=== PATIENT | male | born 1950 | race Caucasian/White ===

== ENCOUNTER 2019-11-22 21:46 | Emergency (ER) | payer BC ==
[~2019-11-22] VITALS: Ht 165.1 cm; Wt 86.2 kg
[2019-11-22 21:50] VITALS: BP_SYST 153
--- NOTE | 2019-11-22 21:50 | NUR ---
Patient triaged and placed in waiting room. VSS and patient appears in no acute distress at this time. Accompanied by FRIEND, awaiting available bed, and MD notified of need for MSE.
--- NOTE | 2019-11-22 22:37 | NUR ---
Patient to ER bed 3 to gown for evaluation. Side rails up. Report given to CLIFTON STANLEY.
--- NOTE | 2019-11-22 22:38 | NUR ---
Pt complains of rash that he noticed 3 weeks ago and has progessively got worse. Pt denies any N/V, short of breath, fever. No other injuries/complaints per patient or noted.
--- NOTE | 2019-11-22 22:50 | NUR ---
ER Dr. Rader at bedside examining patient.
--- NOTE | 2019-11-22 23:05 | NUR ---
Patient given written and verbal discharge instructions and verbalizes understanding. ER MD discussed with patient the results and treatment provided. Patient in stable condition. ID arm band removed. No Rx given. Patient educated on pain management and to follow up with PMD. Pain Scale 0/10 Opportunity for questions provided and answered. Medication side effect fact sheet provided.
[2019-11-22 23:17] VITALS: BP_SYST 153
== END 2019-11-22 23:17 | disposition home or self-care (01) ==
LOC: SED 21:46
DX: I12.9 Hypertensive chronic kidney disease with stage 1 through stage 4 chronic kidney disease, or unspecified chronic kidney disease (principal); E11.22 Type 2 diabetes mellitus with diabetic chronic kidney disease; N18.9 Chronic kidney disease, unspecified; R21 Rash and other nonspecific skin eruption
CPT/HCPCS: 99281